=== PATIENT | male | born 1970 | race American Indian/Alaskan Native ===

== ENCOUNTER 2018-12-27 11:06 | Day surgery (SDC) | payer BC ==
[~2018-12-27 11:06] MED LIST: IOPIDINE ONE; MYDRIACYL ONE; NEOFRIN ONE
[2018-12-27] MEDS ORDERED: NEOFRIN OS ONE (11:50)
[2018-12-27] MEDS ORDERED: MYDRIACYL OS ONE (11:50)
[2018-12-27] MEDS ORDERED: IOPIDINE OS ONE ×2 (11:50→12:41)
[2018-12-27 12:28] VITALS: BP 113/67
== END 2018-12-27 12:45 | disposition home or self-care (01) ==
LOC: OR 11:06
PROVIDERS: ATTEND Specialist
DX: H26.492 Other secondary cataract, left eye (principal); E11.36 Type 2 diabetes mellitus with diabetic cataract; I10 Essential (primary) hypertension; J45.909 Unspecified asthma, uncomplicated; Z79.899 Other long term (current) drug therapy; Z98.42 Cataract extraction status, left eye; Z98.41 Cataract extraction status, right eye; Z98.890 Other specified postprocedural states; Z88.8 Allergy status to other drugs, medicaments and biological substances; Z86.2 Personal history of diseases of the blood and blood-forming organs and certain disorders involving the immune mechanism
CPT/HCPCS: 82962

== ENCOUNTER 2019-01-03 11:29 | Day surgery (SDC) | payer BC ==
[2019-01-03] MEDS ORDERED: MYDRIACYL OD ONE (12:35)
[2019-01-03] MEDS ORDERED: IOPIDINE OD ONE (12:35)
[2019-01-03] MEDS ORDERED: NEOFRIN OD ONE (12:35)
[2019-01-03 15:19] VITALS: BP 147/89
== END 2019-01-03 11:30 | disposition home or self-care (01) ==
LOC: OR 11:29
PROVIDERS: ATTEND Specialist
DX: H26.491 Other secondary cataract, right eye (principal); E11.36 Type 2 diabetes mellitus with diabetic cataract; I10 Essential (primary) hypertension; J45.909 Unspecified asthma, uncomplicated; Z79.899 Other long term (current) drug therapy; Z98.42 Cataract extraction status, left eye; Z98.41 Cataract extraction status, right eye; Z98.890 Other specified postprocedural states; Z88.8 Allergy status to other drugs, medicaments and biological substances; Z86.2 Personal history of diseases of the blood and blood-forming organs and certain disorders involving the immune mechanism
CPT/HCPCS: 82962